=== PATIENT | male | born 1960 | race Caucasian/White ===

== ENCOUNTER 2020-01-03 19:58 | Inpatient (IN) ==
[2020-01-03] MEDS ORDERED: 0.9 % Sodium Chloride 1,000 ML IVC ONE (20:22)
[2020-01-03 20:42] LABS: Basophils % 0.4 %; Eosinophils # 0.2 K/mcL (0.0-0.6); Eosinophils % 1.9 %; Hematocrit 39.4 % (37.5-50.1); Immature Granulocytes % 0.6 % (0-4); Lymphocytes # 2.2 K/mcL (0.6-4.6); Lymphocytes % 22.6 %; Mean Corpuscular Hemoglobin 28.7 pg (28.0-33.3); Mean Platelet Volume 11.6 fL (9.4-12.4); Monocytes # 1.1 K/mcL (0.0-1.3); Monocytes % 11.5 %; Neutrophils # 6.1 K/mcL (1.6-8.9); Platelet Count 220 K/mcL (140-400); Red Blood Count 4.53 M/mcL (4.19-5.50); Red Cell Distribution Width 13.8 % (11.5-14.5); White Blood Count 9.6 K/mcL (4.3-11.1)
[2020-01-03 21:06] LABS: Ethanol < 10 mg/dL (Less than 10)
[2020-01-03 21:13] LABS: Alanine Aminotransferase 26 Units/L (7-52); Albumin 3.6 g/dL (3.5-5.7); Albumin/Globulin Ratio 1.3 (1.1-2.2); Alkaline Phosphatase 73 Units/L (34-104); Aspartate Amino Transferase 13 Units/L (13-39); BUN/Creatinine Ratio 20 (6-26); Bilirubin,Total 0.4 mg/dL (0.3-1.0); Blood Urea Nitrogen 26 mg/dL (8-23); Carbon Dioxide 22 mEq/L (23-29); Chloride 98 mEq/L (98-107); Globulin 2.7 g/dL (2.4-3.5); Glucose 530 mg/dL (70-105); Osmolality,Calculated 295 (280-300); Potassium 4.2 mEq/L (3.5-5.1); Sodium 128 mEq/L (136-145); Total Protein 6.3 g/dL (6.4-8.9); eGFR For African Americans > 60 (> 60); eGFR For Non-African Americans 56 (> 60)
[2020-01-03 21:15] LABS: Troponin I 0.05 ng/mL (< 0.04)
[2020-01-03 21:25] LABS: Bilirubin,Urine Negative (Negative); Blood,Urine Negative (Negative); Clarity,Urine Clear (Clear); Color,Urine Light-Yellow (Yellow); Glucose,Urine (UA) >=1000 mg/dL (Normal); Ketones,Urine Negative (Negative); Leukocyte Esterase,Urine Negative (Negative); Nitrite,Urine Negative (Negative); Protein,Urine Trace mg/dL (Neg-Trace); RBC,Urine 0-3 per hpf (0-3); Specific Gravity,Urine > 1.030 (1.010-1.025); Squamous Epithelial Cell,Urine Few per hpf (None-Few); Urobilinogen,Urine Normal (Normal); WBC,Urine 0-3 per hpf (0-3)
[2020-01-03] MEDS ORDERED: Insulin Regular, Human 100 UNIT/ML SQ ONE (21:49)
[2020-01-03] MEDS ORDERED: Aspirin 81 MG TAB.CHEW PO STA (22:29)
[2020-01-03] MEDS ORDERED: Naloxone 0.4 MG/ML INJ IVP PRN (23:22)
[2020-01-04] MEDS ORDERED: D5% in Water 1,000 ML IVC PRN (03:08)
[2020-01-04] MEDS ORDERED: *HR* Dextrose 50 % in Water (Vial) 50 ML VIAL IVP PRN (03:08)
[2020-01-04] MEDS ORDERED: Dextrose Gel 15 GM/37.5 ML TUBE PO PRN ×2 (03:08)
[2020-01-04] MEDS ORDERED: 0.9 % Sodium Chloride 1,000 ML IVC ONE (04:50)
[2020-01-04] MEDS ORDERED: Perflutren Lipid Microsphere 1.3 ML in 0.9 % Sodium Chloride 8.7 ML IVP PRN (04:56)
[2020-01-04] MEDS ORDERED: *HR* Heparin 5,000 UNIT/ML VIAL SQ SCH (06:00)
[2020-01-04] MEDS ORDERED: Insulin LISPRO 300 UNITS/3 ML VIAL SQ SCH (06:00)
[2020-01-04 06:04] LABS: Hematocrit 38.6 % (37.5-50.1); Hemoglobin 12.6 g/dL (12.9-16.9); Mean Corpuscular HGB Conc 32.6 g/dL (31.6-35.5); Mean Corpuscular Hemoglobin 28.1 pg (28.0-33.3); Mean Platelet Volume 11.6 fL (9.4-12.4); Platelet Count 204 K/mcL (140-400); Red Blood Count 4.49 M/mcL (4.19-5.50); Red Cell Distribution Width 13.7 % (11.5-14.5); White Blood Count 7.9 K/mcL (4.3-11.1)
[2020-01-04 06:24] LABS: Alanine Aminotransferase 25 Units/L (7-52); Albumin 3.4 g/dL (3.5-5.7); Albumin/Globulin Ratio 1.3 (1.1-2.2); Alkaline Phosphatase 62 Units/L (34-104); Aspartate Amino Transferase 14 Units/L (13-39); BUN/Creatinine Ratio 27 (6-26); Bilirubin,Total 0.3 mg/dL (0.3-1.0); Blood Urea Nitrogen 24 mg/dL (8-23); Calcium 8.9 mg/dL (8.6-10.3); Carbon Dioxide 22 mEq/L (23-29); Chloride 106 mEq/L (98-107); Globulin 2.6 g/dL (2.4-3.5); Glucose 262 mg/dL (70-105); Magnesium 1.3 mg/dL (1.6-2.6); Osmolality,Calculated 291 (280-300); Phosphorous 3.4 mg/dL (2.7-4.5); Potassium 3.8 mEq/L (3.5-5.1); Sodium 134 mEq/L (136-145); Troponin I 0.05 ng/mL (< 0.04); eGFR For African Americans > 60 (> 60); eGFR For Non-African Americans > 60 (> 60)
[2020-01-04] MEDS: Gabapentin 400 MG CAPSULE PO SCH ×3 (12:49→21:18)
[2020-01-04] MEDS: Insulin LISPRO 300 UNITS/3 ML VIAL SQ SCH ×3 (12:49→21:12)
[2020-01-04] MEDS ORDERED: Insulin DETEMIR 100 UNIT/ML X5UNITS SQ SCH (21:00)
[2020-01-04] MEDS: Apixaban 5 MG TABLET PO SCH (21:11)
[2020-01-04] MEDS ORDERED: Acetaminophen 325 MG TABLET PO PRN (23:49)
[2020-01-04] MEDS ORDERED: *HR* OxyCODONE Immed Rel 5 MG TABLET PO PRN (23:50)
[2020-01-05 06:20] LABS: Basophils # 0.1 K/mcL (0.0-0.2); Basophils % 0.6 %; Eosinophils # 0.2 K/mcL (0.0-0.6); Eosinophils % 2.4 %; Hematocrit 39.1 % (37.5-50.1); Hemoglobin 12.6 g/dL (12.9-16.9); Immature Granulocytes % 0.3 % (0-4); Lymphocytes # 2.3 K/mcL (0.6-4.6); Lymphocytes % 26.6 %; Mean Corpuscular HGB Conc 32.2 g/dL (31.6-35.5); Mean Corpuscular Hemoglobin 28.3 pg (28.0-33.3); Mean Corpuscular Volume 87.7 fL (83.0-100.0); Mean Platelet Volume 12.4 fL (9.4-12.4); Monocytes # 0.8 K/mcL (0.0-1.3); Monocytes % 9.3 %; Neutrophils # 5.3 K/mcL (1.6-8.9); Platelet Count 175 K/mcL (140-400); Red Blood Count 4.46 M/mcL (4.19-5.50); Red Cell Distribution Width 13.9 % (11.5-14.5); Segmented Neutrophils % 60.8 %; White Blood Count 8.7 K/mcL (4.3-11.1)
[2020-01-05 06:57] LABS: BUN/Creatinine Ratio 28 (6-26); Blood Urea Nitrogen 24 mg/dL (8-23); Calcium 8.9 mg/dL (8.6-10.3); Carbon Dioxide 22 mEq/L (23-29); Chloride 107 mEq/L (98-107); Glucose 229 mg/dL (70-105); Magnesium 1.3 mg/dL (1.6-2.6); Osmolality,Calculated 291 (280-300); Potassium 4.2 mEq/L (3.5-5.1); Sodium 135 mEq/L (136-145); eGFR For African Americans > 60 (> 60); eGFR For Non-African Americans > 60 (> 60)
[2020-01-05 08:57] LABS: Estimated Average Glucose 309 mg/dl
[2020-01-05] MEDS: Insulin LISPRO 300 UNITS/3 ML VIAL SQ SCH ×4 (10:15→20:47)
[2020-01-05] MEDS: Gabapentin 400 MG CAPSULE PO SCH ×3 (10:21→20:47)
[2020-01-05] MEDS: lisinopriL 5 MG TABLET PO SCH (10:21)
[2020-01-05] MEDS: Apixaban 5 MG TABLET PO SCH ×2 (10:21→20:47)
[2020-01-05] MEDS: Acetaminophen 325 MG TABLET PO PRN (16:03)
[2020-01-05] MEDS: Insulin DETEMIR 100 UNIT/ML X5UNITS SQ SCH (20:48)
[2020-01-06 04:31] LABS: BUN/Creatinine Ratio 22 (6-26); Blood Urea Nitrogen 19 mg/dL (8-23); Carbon Dioxide 23 mEq/L (23-29); Chloride 104 mEq/L (98-107); Glucose 228 mg/dL (70-105); Magnesium 1.6 mg/dL (1.6-2.6); Osmolality,Calculated 287 (280-300); Phosphorous 3.3 mg/dL (2.7-4.5); Potassium 4.3 mEq/L (3.5-5.1); Sodium 134 mEq/L (136-145); eGFR For African Americans > 60 (> 60); eGFR For Non-African Americans > 60 (> 60)
[2020-01-06] MEDS: lisinopriL 5 MG TABLET PO SCH (08:13)
[2020-01-06] MEDS: Gabapentin 400 MG CAPSULE PO SCH ×3 (08:13→20:38)
[2020-01-06] MEDS: Apixaban 5 MG TABLET PO SCH ×2 (08:13→20:30)
[2020-01-06] MEDS: Insulin LISPRO 300 UNITS/3 ML VIAL SQ SCH ×3 (08:15→17:44)
[2020-01-06] MEDS ORDERED: Insulin LISPRO 300 UNITS/3 ML VIAL SQ SCH ×3 (13:16→21:00)
[2020-01-06] MEDS: 0.9 % Sodium Chloride 1,000 ML IVC SCH (14:12)
[2020-01-06] MEDS: Insulin DETEMIR 100 UNIT/ML X5UNITS SQ SCH (20:35)
[2020-01-07] MEDS: 0.9 % Sodium Chloride 1,000 ML IVC SCH (03:57)
[2020-01-07] MEDS: Gabapentin 400 MG CAPSULE PO SCH (09:02)
[2020-01-07] MEDS: Insulin LISPRO 300 UNITS/3 ML VIAL SQ SCH (09:02)
[2020-01-07] MEDS: Apixaban 5 MG TABLET PO SCH (09:02)
[2020-01-07] MEDS: Acetaminophen 325 MG TABLET PO PRN (09:05)
[2020-01-07 09:35] LABS: BUN/Creatinine Ratio 25 (6-26); Blood Urea Nitrogen 20 mg/dL (8-23); Calcium 8.9 mg/dL (8.6-10.3); Carbon Dioxide 25 mEq/L (23-29); Chloride 105 mEq/L (98-107); Glucose 259 mg/dL (70-105); Magnesium 1.7 mg/dL (1.6-2.6); Osmolality,Calculated 288 (280-300); Potassium 4.6 mEq/L (3.5-5.1); Sodium 133 mEq/L (136-145); eGFR For African Americans > 60 (> 60); eGFR For Non-African Americans > 60 (> 60)
[2020-01-07] MEDS ORDERED: Magnesium Oxide 400 MG TABLET PO SCH (10:00)
[2020-01-07 10:11] VITALS: BP 150/82
== END 2020-01-07 13:22 | disposition home or self-care (01) | DRG 281 ==
LOC: 3BNU 19:58 → EMEROOARM 19:58 → SUATTDRO 22:40 → 3BNU 23:28
PROVIDERS: ADMIT Internal Medicine; ATTEND Internal Medicine

== ENCOUNTER 2020-05-08 19:58 | Inpatient (IN) ==
[2020-05-08] MEDS ORDERED: 0.9 % Sodium Chloride 500 ML IVC ONE (20:11)
[2020-05-08] MEDS: Aspirin 81 MG TAB.CHEW PO ONE ×2 (20:16→21:13)
[2020-05-08] MEDS ORDERED: Isovue-370 500 ML BOTTLE IVP ONE ×2 (20:22)
[2020-05-08 20:32] LABS: Basophils % 0.5 %; Eosinophils # 0.2 K/mcL (0.0-0.6); Hematocrit 40.9 % (37.5-50.1); Hemoglobin 13.3 g/dL (12.9-16.9); Immature Granulocytes % 0.8 % (0-4); Lymphocytes % 27.1 %; Mean Corpuscular HGB Conc 32.5 g/dL (31.6-35.5); Mean Corpuscular Hemoglobin 28.1 pg (28.0-33.3); Mean Corpuscular Volume 86.5 fL (83.0-100.0); Mean Platelet Volume 11.3 fL (9.4-12.4); Monocytes # 0.9 K/mcL (0.0-1.3); Monocytes % 12.5 %; Neutrophils # 4.2 K/mcL (1.6-8.9); Platelet Count 219 K/mcL (140-400); Red Blood Count 4.73 M/mcL (4.19-5.50); Segmented Neutrophils % 56.1 %; White Blood Count 7.5 K/mcL (4.3-11.1)
[2020-05-08 20:41] LABS: INR 1.2; Prothrombin Time 13.3 Seconds (9.4-12.1)
[2020-05-08 20:44] LABS: Activated Partial Thrombo Time 26.9 Seconds (26.0-36.0)
[2020-05-08 20:52] LABS: BUN/Creatinine Ratio 19 (6-26); Blood Urea Nitrogen 18 mg/dL (8-23); Calcium 8.8 mg/dL (8.6-10.3); Carbon Dioxide 22 mEq/L (23-29); Chloride 103 mEq/L (98-107); Glucose 299 mg/dL (70-105); Lipase 20 Units/L (11-82); Osmolality,Calculated 289 (280-300); Potassium 4.3 mEq/L (3.5-5.1); Sodium 133 mEq/L (136-145); eGFR For African Americans > 60 (> 60); eGFR For Non-African Americans > 60 (> 60)
[2020-05-08 21:03] LABS: Troponin I 0.06 ng/mL (< 0.04)
[2020-05-08] MEDS ORDERED: *HR* FentaNYL (PF) 100 MCG/2 ML VIAL IVP ONE (22:27)
[2020-05-08] MEDS ORDERED: *HR* Dextrose 50 % in Water (Vial) 50 ML VIAL IVP PRN (23:26)
[2020-05-08] MEDS ORDERED: Dextrose Gel 15 GM/37.5 ML TUBE PO PRN ×2 (23:26)
[2020-05-08] MEDS ORDERED: D5% in Water 1,000 ML IVC PRN (23:26)
[2020-05-08] MEDS ORDERED: Naloxone 0.4 MG/ML INJ IVP PRN (23:26)
[2020-05-09] MEDS ORDERED: Furosemide 20 MG/2 ML VIAL IVP ONE (01:11)
[2020-05-09] MEDS ORDERED: Ipratropium/Albuterol Neb 3 ML IH PRN (01:13)
[2020-05-09 02:07] LABS: Basophils # 0.1 K/mcL (0.0-0.2); Basophils % 0.6 %; Eosinophils # 0.3 K/mcL (0.0-0.6); Eosinophils % 3.5 %; Hemoglobin 12.5 g/dL (12.9-16.9); Immature Granulocytes % 0.8 % (0-4); Lymphocytes # 2.4 K/mcL (0.6-4.6); Lymphocytes % 30.2 %; Mean Corpuscular HGB Conc 32.9 g/dL (31.6-35.5); Mean Corpuscular Hemoglobin 28.9 pg (28.0-33.3); Mean Platelet Volume 11.3 fL (9.4-12.4); Platelet Count 214 K/mcL (140-400); Red Blood Count 4.32 M/mcL (4.19-5.50); Segmented Neutrophils % 51.9 %; White Blood Count 7.8 K/mcL (4.3-11.1)
[2020-05-09 02:18] LABS: BUN/Creatinine Ratio 19 (6-26); Blood Urea Nitrogen 16 mg/dL (8-23); Calcium 8.2 mg/dL (8.6-10.3); Carbon Dioxide 23 mEq/L (23-29); Chloride 106 mEq/L (98-107); Glucose 152 mg/dL (70-105); Osmolality,Calculated 284 (280-300); Potassium 3.8 mEq/L (3.5-5.1); Sodium 135 mEq/L (136-145); eGFR For African Americans > 60 (> 60); eGFR For Non-African Americans > 60 (> 60)
[2020-05-09] MEDS ORDERED: Azithromycin 250 MG TABLET PO ONE (04:45)
[2020-05-09] MEDS ORDERED: Nitroglycerin 0.4 MG TAB.SUBL SL PRN (04:53)
[2020-05-09] MEDS ORDERED: Isovue-370 500 ML BOTTLE IVP ONE (05:05)
[2020-05-09] MEDS ORDERED: Acetaminophen 325 MG TABLET PO ONE (06:14)
[2020-05-09] MEDS: Insulin LISPRO 300 UNITS/3 ML VIAL SQ SCH ×4 (09:36→21:23)
[2020-05-09] MEDS: Furosemide 40 MG/4 ML VIAL IVP SCH ×2 (09:56→21:19)
[2020-05-09] MEDS: Aspirin 81 MG TAB.CHEW PO SCH (09:56)
[2020-05-09] MEDS: Apixaban 5 MG TABLET PO SCH ×2 (09:56→21:19)
[2020-05-09] MEDS: predniSONE 20 MG TABLET PO SCH (09:57)
[2020-05-09] MEDS ORDERED: Ondansetron 4 MG/2 ML VIAL IVP PRN (10:21)
[2020-05-09] MEDS: *HR* HYDROcodone/Acet 5/325 mg TABLET PO PRN ×3 (11:36→23:50)
[2020-05-09] MEDS: Gabapentin 400 MG CAPSULE PO SCH ×2 (16:29→21:18)
[2020-05-09] MEDS ORDERED: Insulin DETEMIR 100 UNIT/ML X5UNITS SQ SCH (21:00)
[2020-05-10 02:17] LABS: BUN/Creatinine Ratio 21 (6-26); Blood Urea Nitrogen 24 mg/dL (8-23); Calcium 8.8 mg/dL (8.6-10.3); Carbon Dioxide 24 mEq/L (23-29); Chloride 98 mEq/L (98-107); Glucose 362 mg/dL (70-105); Magnesium 1.2 mg/dL (1.6-2.6); Osmolality,Calculated 289 (280-300); Phosphorous 4.6 mg/dL (2.7-4.5); Potassium 4.2 mEq/L (3.5-5.1); Sodium 130 mEq/L (136-145); eGFR For African Americans > 60 (> 60); eGFR For Non-African Americans > 60 (> 60)
[2020-05-10] MEDS: *HR* HYDROcodone/Acet 5/325 mg TABLET PO PRN ×4 (06:46→21:42)
[2020-05-10] MEDS ORDERED: Magnesium Sulfate 1 GM/102 ML PIGGYBACK IVPB ONE (07:19)
[2020-05-10] MEDS: Gabapentin 400 MG CAPSULE PO SCH ×4 (08:10→21:39)
[2020-05-10] MEDS: lisinopriL 5 MG TABLET PO SCH (08:11)
[2020-05-10] MEDS: Magnesium Oxide 400 MG TABLET PO SCH (08:11)
[2020-05-10] MEDS: predniSONE 20 MG TABLET PO SCH (08:12)
[2020-05-10] MEDS: Aspirin 81 MG TAB.CHEW PO SCH (08:12)
[2020-05-10] MEDS: Apixaban 5 MG TABLET PO SCH ×2 (08:12→21:39)
[2020-05-10] MEDS: Furosemide 40 MG/4 ML VIAL IVP SCH ×2 (08:13→21:39)
[2020-05-10] MEDS: Insulin LISPRO 300 UNITS/3 ML VIAL SQ SCH ×4 (08:15→21:40)
[2020-05-10 09:19] LABS: Estimated Average Glucose 269 mg/dl
[2020-05-10] MEDS ORDERED: Insulin LISPRO 300 UNITS/3 ML VIAL SQ SCH (17:00)
[2020-05-10] MEDS ORDERED: Insulin DETEMIR 100 UNIT/ML X5UNITS SQ SCH (21:00)
[2020-05-11] MEDS: *HR* HYDROcodone/Acet 5/325 mg TABLET PO PRN ×4 (02:19→20:55)
[2020-05-11 03:24] LABS: BUN/Creatinine Ratio 26 (6-26); Blood Urea Nitrogen 33 mg/dL (8-23); Calcium 9.3 mg/dL (8.6-10.3); Carbon Dioxide 29 mEq/L (23-29); Chloride 96 mEq/L (98-107); Glucose 362 mg/dL (70-105); Magnesium 1.5 mg/dL (1.6-2.6); Osmolality,Calculated 300 (280-300); Phosphorous 3.9 mg/dL (2.7-4.5); Potassium 3.9 mEq/L (3.5-5.1); Sodium 134 mEq/L (136-145); eGFR For African Americans > 60 (> 60); eGFR For Non-African Americans 57 (> 60)
[2020-05-11] MEDS ORDERED: Magnesium Sulfate 1 GM/102 ML PIGGYBACK IVPB ONE (08:32)
[2020-05-11] MEDS: predniSONE 10 MG TABLET PO SCH (09:09)
[2020-05-11] MEDS: Magnesium Oxide 400 MG TABLET PO SCH (09:09)
[2020-05-11] MEDS: Gabapentin 400 MG CAPSULE PO SCH ×4 (09:10→20:28)
[2020-05-11] MEDS: Aspirin 81 MG TAB.CHEW PO SCH (09:10)
[2020-05-11] MEDS: lisinopriL 5 MG TABLET PO SCH (09:10)
[2020-05-11] MEDS: Furosemide 40 MG/4 ML VIAL IVP SCH ×2 (09:10→20:34)
[2020-05-11] MEDS: Apixaban 5 MG TABLET PO SCH ×2 (09:10→20:28)
[2020-05-11] MEDS: Insulin DETEMIR 100 UNIT/ML X5UNITS SQ SCH ×2 (09:11→20:33)
[2020-05-11] MEDS: Insulin LISPRO 300 UNITS/3 ML VIAL SQ SCH ×7 (09:12→20:30)
[2020-05-12] MEDS: Gabapentin 400 MG CAPSULE PO SCH ×4 (08:49→20:33)
[2020-05-12] MEDS: Insulin LISPRO 300 UNITS/3 ML VIAL SQ SCH ×7 (08:49→20:33)
[2020-05-12] MEDS: lisinopriL 5 MG TABLET PO SCH (08:49)
[2020-05-12] MEDS: Aspirin 81 MG TAB.CHEW PO SCH (08:49)
[2020-05-12] MEDS: Furosemide 40 MG/4 ML VIAL IVP SCH ×2 (08:50→20:32)
[2020-05-12] MEDS: Apixaban 5 MG TABLET PO SCH ×2 (08:50→20:34)
[2020-05-12] MEDS: predniSONE 10 MG TABLET PO SCH (08:50)
[2020-05-12] MEDS: *HR* HYDROcodone/Acet 5/325 mg TABLET PO PRN ×4 (08:50→22:09)
[2020-05-12] MEDS: Magnesium Oxide 400 MG TABLET PO SCH (08:50)
[2020-05-12] MEDS: Insulin DETEMIR 100 UNIT/ML X5UNITS SQ SCH ×2 (08:56→20:33)
[2020-05-12] MEDS ORDERED: polyethylene glycoL 3350 17 GM POWD.PACK PO PRN (11:58)
[2020-05-12 20:05] VITALS: BP 127/82
[2020-05-13] MEDS: *HR* HYDROcodone/Acet 5/325 mg TABLET PO PRN (02:33)
== END 2020-05-13 03:40 | DRG 190 ==
LOC: EMEROOARM 19:58 → 3NENU 19:58 → SUATTDRO 22:52 → 3NENU 23:52 → 3BNU 05-10 14:01
PROVIDERS: ADMIT Family Medicine; ATTEND Internal Medicine

== ENCOUNTER 2020-08-18 00:25 | Inpatient (IN) ==
[2020-08-18] MEDS ORDERED: Isovue-370 500 ML BOTTLE IVP ONE ×3 (00:32→00:36)
[2020-08-18] MEDS ORDERED: 0.9 % Sodium Chloride 1,000 ML IVC ONE (00:48)
[2020-08-18 01:11] LABS: Basophils % 0.3 %; Eosinophils # 0.1 K/mcL (0.0-0.6); Eosinophils % 1.5 %; Hematocrit 35.3 % (37.5-50.1); Hemoglobin 11.3 g/dL (12.9-16.9); Immature Granulocytes % 1.3 % (0-4); Lymphocytes # 1.9 K/mcL (0.6-4.6); Mean Corpuscular Hemoglobin 28.5 pg (28.0-33.3); Mean Corpuscular Volume 88.9 fL (83.0-100.0); Mean Platelet Volume 10.5 fL (9.4-12.4); Monocytes # 0.7 K/mcL (0.0-1.3); Neutrophils # 4.3 K/mcL (1.6-8.9); Platelet Count 212 K/mcL (140-400); Red Blood Count 3.97 M/mcL (4.19-5.50); Red Cell Distribution Width 12.6 % (11.5-14.5); Segmented Neutrophils % 60.9 %; White Blood Count 7.1 K/mcL (4.3-11.1)
[2020-08-18 01:16] LABS: INR 1.6; Prothrombin Time 18.7 Seconds (9.4-12.1)
[2020-08-18 01:18] LABS: Activated Partial Thrombo Time 30.2 Seconds (26.0-36.0)
[2020-08-18 01:27] LABS: D-Dimer < 215 ng/mLFEU (0-500)
[2020-08-18] MEDS ORDERED: Norepinephrine 4 MG/254 ML IV.SOLN IVC SCH (01:30)
[2020-08-18 01:36] LABS: Troponin I 0.05 ng/mL (< 0.04)
[2020-08-18 01:42] LABS: Alanine Aminotransferase 13 Units/L (7-52); Albumin 2.4 g/dL (3.5-5.7); Albumin/Globulin Ratio 1.2 (1.1-2.2); Alkaline Phosphatase 41 Units/L (34-104); Aspartate Amino Transferase 8 Units/L (13-39); BUN/Creatinine Ratio 21 (6-26); Bilirubin,Indirect 0.2 mg/dL (0.0-1.0); Bilirubin,Total 0.2 mg/dL (0.3-1.0); Blood Urea Nitrogen 21 mg/dL (8-23); Calcium 5.6 mg/dL (8.6-10.3); Carbon Dioxide 20 mEq/L (23-29); Chloride 114 mEq/L (98-107); Glucose 122 mg/dL (70-105); Lipase 25 Units/L (11-82); Magnesium 0.9 mg/dL (1.6-2.6); Osmolality,Calculated 294 (280-300); Phosphorous 2.3 mg/dL (2.7-4.5); Potassium 2.6 mEq/L (3.5-5.1); Sodium 140 mEq/L (136-145); Total Protein 4.4 g/dL (6.4-8.9); eGFR For African Americans > 60 (> 60); eGFR For Non-African Americans > 60 (> 60)
[2020-08-18] MEDS ORDERED: Potassium Chloride 40 MEQ, Lidocaine 1% 2 ML in 0.9 % Sodium Chloride 500 ML IVPB ONE (02:00)
[2020-08-18] MEDS: Calcium Gluconate 1gm/50mL 1 GM/50 ML BAG IVPB SCH ×3 (02:04→04:33)
[2020-08-18] MEDS ORDERED: Albumin 25% 25gram/100mL 25 GM/100 ML IV.SOLN IVPB ONE (02:19)
[2020-08-18] MEDS ORDERED: *HR* FentaNYL (PF) 100 MCG/2 ML VIAL IVP ONE (03:11)
[2020-08-18 03:39] LABS: Bacteria,Urine Few per hpf (None-Few); Bilirubin,Urine Negative (Negative); Blood,Urine Negative (Negative); Clarity,Urine Clear (Clear); Color,Urine Light-Yellow (Yellow); Glucose,Urine (UA) >=1000 mg/dL (Normal); Ketones,Urine Negative (Negative); Leukocyte Esterase,Urine Negative (Negative); Mucus,Urine Few per lpf (None-Few); Nitrite,Urine Negative (Negative); Protein,Urine Negative (Neg-Trace); RBC,Urine 0-3 per hpf (0-3); Specific Gravity,Urine 1.017 (1.010-1.025); Urobilinogen,Urine Normal (Normal); WBC,Urine 0-3 per hpf (0-3)
[2020-08-18 05:00] LABS: VBG Ionized Calcium 1.16 mmol/L (1.15-1.35)
[2020-08-18 05:37] LABS: Calcium 9.2 mg/dL (8.6-10.3); Magnesium 1.8 mg/dL (1.6-2.6); Phosphorous 4.4 mg/dL (2.7-4.5); Potassium 4.9 mEq/L (3.5-5.1)
[2020-08-18 05:40] LABS: Troponin I 0.07 ng/mL (< 0.04)
[2020-08-18 05:46] LABS: Adenovirus Not Detected (Not Detect); Bordetella Pertussis Not Detected (Not Detect); Chlamydophila pneumoniae Not Detected (Not Detect); Coronavirus 229E Not Detected (Not Detect); Coronavirus HKU1 Not Detected (Not Detect); Coronavirus NL63 Not Detected (Not Detect); Coronavirus OC43 Not Detected (Not Detect); Human Metapneumovirus Not Detected (Not Detect); Human Rhinovirus/Enterovirus Not Detected (Not Detect); Influenza A Subtype 2009 H1 Not Detected (Not Detect); Influenza B Not Detected (Not Detect); Mycoplasma pneumoniae Not Detected (Not Detect); Parainfluenza Virus 1 Not Detected (Not Detect); Parainfluenza Virus 2 Not Detected (Not Detect); Parainfluenza Virus 3 Not Detected (Not Detect); Parainfluenza Virus 4 Not Detected (Not Detect); Respiratory Syncytial Virus Not Detected (Not Detect); SARS-CoV-2 Not Detected (Not Detect)
[2020-08-18] MEDS ORDERED: Naloxone 0.4 MG/ML INJ IVP PRN (06:00)
[2020-08-18] MEDS ORDERED: Melatonin 3 MG TABLET PO PRN (06:00)
[2020-08-18] MEDS ORDERED: Ondansetron 4 MG/2 ML VIAL IVP PRN (06:00)
[2020-08-18] MEDS ORDERED: *HR* Heparin 5,000 UNIT/ML VIAL IVP PRN ×2 (06:02)
[2020-08-18] MEDS ORDERED: D5% in Water 1,000 ML IVC PRN (06:03)
[2020-08-18] MEDS ORDERED: *HR* Dextrose 50 % in Water (Vial) 50 ML VIAL IVP PRN (06:03)
[2020-08-18] MEDS ORDERED: Dextrose Gel 15 GM/37.5 ML TUBE PO PRN ×2 (06:03)
[2020-08-18] MEDS ORDERED: Heparin 25,000UNIT/250ML 1/2NS 25,000 UNIT/250 ML IV.SOLN IVC SCH (06:15)
[2020-08-18 08:11] LABS: Estimated Average Glucose 206 mg/dl; Hemoglobin A1C 8.8 %
[2020-08-18] MEDS: Insulin LISPRO 300 UNITS/3 ML VIAL SUBQ SCH ×2 (11:13→18:13)
[2020-08-18 12:10] LABS: Troponin I 0.07 ng/mL (< 0.04)
[2020-08-18] MEDS ORDERED: Perflutren Lipid Microsphere 1.3 ML in 0.9 % Sodium Chloride 8.7 ML IVP PRN (13:03)
[2020-08-18] MEDS: Gabapentin 400 MG CAPSULE PO SCH ×2 (13:44→20:37)
[2020-08-18] MEDS: Aspirin 81 MG TAB.CHEW PO SCH (13:44)
[2020-08-18 14:20] LABS: Calcium 9.6 mg/dL (8.6-10.3)
[2020-08-18] MEDS ORDERED: Gabapentin 400 MG CAPSULE PO SCH (15:00)
[2020-08-18] MEDS: 0.9 % Sodium Chloride 1,000 ML IVC SCH (16:01)
[2020-08-18] MEDS: rOPINIRole 1 MG TABLET PO SCH (20:36)
[2020-08-19] MEDS: Insulin LISPRO 300 UNITS/3 ML VIAL SUBQ SCH ×4 (00:34→17:41)
[2020-08-19 01:48] LABS: Basophils % 0.6 %; Eosinophils # 0.2 K/mcL (0.0-0.6); Eosinophils % 3.1 %; Hematocrit 37.6 % (37.5-50.1); Hemoglobin 12.2 g/dL (12.9-16.9); Immature Granulocytes % 0.6 % (0-4); Lymphocytes # 2.1 K/mcL (0.6-4.6); Lymphocytes % 30.1 %; Mean Corpuscular HGB Conc 32.4 g/dL (31.6-35.5); Mean Corpuscular Hemoglobin 28.2 pg (28.0-33.3); Mean Platelet Volume 10.4 fL (9.4-12.4); Monocytes # 0.7 K/mcL (0.0-1.3); Monocytes % 10.5 %; Neutrophils # 3.9 K/mcL (1.6-8.9); Platelet Count 210 K/mcL (140-400); Red Blood Count 4.32 M/mcL (4.19-5.50); Red Cell Distribution Width 12.7 % (11.5-14.5); Segmented Neutrophils % 55.1 %; White Blood Count 7.1 K/mcL (4.3-11.1)
[2020-08-19] MEDS: 0.9 % Sodium Chloride 1,000 ML IVC SCH ×2 (01:57→11:14)
[2020-08-19 01:58] LABS: INR 1.2; Prothrombin Time 13.4 Seconds (9.4-12.1)
[2020-08-19 02:01] LABS: Activated Partial Thrombo Time 44.1 Seconds (26.0-36.0)
[2020-08-19 02:07] LABS: BUN/Creatinine Ratio 19 (6-26); Blood Urea Nitrogen 27 mg/dL (8-23); Calcium 8.8 mg/dL (8.6-10.3); Carbon Dioxide 27 mEq/L (23-29); Chloride 102 mEq/L (98-107); Glucose 195 mg/dL (70-105); Magnesium 1.7 mg/dL (1.6-2.6); Osmolality,Calculated 290 (280-300); Phosphorous 4.4 mg/dL (2.7-4.5); Potassium 4.4 mEq/L (3.5-5.1); Sodium 135 mEq/L (136-145); eGFR For African Americans > 60 (> 60); eGFR For Non-African Americans 51 (> 60)
[2020-08-19] MEDS: Aspirin 81 MG TAB.CHEW PO SCH (07:24)
[2020-08-19] MEDS: Isosorbide MONOnitrate (24 HR) 30 MG TAB.ER.24H PO SCH (07:24)
[2020-08-19] MEDS: Gabapentin 400 MG CAPSULE PO SCH ×3 (07:24→21:32)
[2020-08-19] MEDS ORDERED: lisinopriL 5 MG TABLET PO SCH (09:00)
[2020-08-19] MEDS: Magnesium Oxide 400 MG TABLET PO SCH ×2 (09:00→21:31)
[2020-08-19] MEDS: Apixaban 5 MG TABLET PO SCH ×2 (11:15→21:32)
[2020-08-19 11:53] LABS: Potassium,Urine 32.3 mEq/L; Protein/Creatinine Ratio,Urine 0.15 mg/mg (0.00-0.20); Sodium, Urine 75.4 mEq/L
[2020-08-19] MEDS ORDERED: Insulin LISPRO 300 UNITS/3 ML VIAL SUBQ SCH (21:00)
[2020-08-19] MEDS ORDERED: Insulin DETEMIR 100 UNIT/ML X5UNITS SUBQ SCH (21:00)
[2020-08-19] MEDS: Metoprolol XL (24 HR) Succ 25 MG TAB.ER.24H PO SCH (21:32)
[2020-08-19] MEDS: rOPINIRole 1 MG TABLET PO SCH (21:32)
[2020-08-20 02:18] LABS: Basophils % 0.5 %; Eosinophils # 0.2 K/mcL (0.0-0.6); Eosinophils % 2.4 %; Hematocrit 36.5 % (37.5-50.1); Hemoglobin 11.5 g/dL (12.9-16.9); Immature Granulocytes % 0.5 % (0-4); Lymphocytes # 1.5 K/mcL (0.6-4.6); Lymphocytes % 19.6 %; Mean Corpuscular HGB Conc 31.5 g/dL (31.6-35.5); Mean Platelet Volume 10.8 fL (9.4-12.4); Monocytes # 0.8 K/mcL (0.0-1.3); Monocytes % 10.1 %; Neutrophils # 5.1 K/mcL (1.6-8.9); Platelet Count 185 K/mcL (140-400); Red Cell Distribution Width 12.7 % (11.5-14.5); Segmented Neutrophils % 66.9 %; White Blood Count 7.6 K/mcL (4.3-11.1)
[2020-08-20 02:36] LABS: BUN/Creatinine Ratio 18 (6-26); Blood Urea Nitrogen 21 mg/dL (8-23); Calcium 8.4 mg/dL (8.6-10.3); Carbon Dioxide 21 mEq/L (23-29); Chloride 108 mEq/L (98-107); Glucose 247 mg/dL (70-105); Osmolality,Calculated 293 (280-300); Potassium 4.6 mEq/L (3.5-5.1); Sodium 136 mEq/L (136-145); eGFR For African Americans > 60 (> 60); eGFR For Non-African Americans > 60 (> 60)
[2020-08-20] MEDS: Acetaminophen 325 MG TABLET PO PRN ×2 (05:40→12:41)
[2020-08-20] MEDS: Aspirin 81 MG TAB.CHEW PO SCH (07:37)
[2020-08-20] MEDS: Isosorbide MONOnitrate (24 HR) 30 MG TAB.ER.24H PO SCH (07:37)
[2020-08-20] MEDS: Gabapentin 400 MG CAPSULE PO SCH (07:37)
[2020-08-20] MEDS: Metoprolol XL (24 HR) Succ 25 MG TAB.ER.24H PO SCH (07:38)
[2020-08-20] MEDS: Insulin LISPRO 300 UNITS/3 ML VIAL SUBQ SCH ×2 (07:38→11:04)
[2020-08-20] MEDS: Apixaban 5 MG TABLET PO SCH (07:38)
[2020-08-20] MEDS: Magnesium Oxide 400 MG TABLET PO SCH (07:38)
[2020-08-20 10:27] VITALS: BP 135/82
== END 2020-08-20 13:33 | disposition home or self-care (01) | DRG 281 ==
LOC: EMEROOARM 00:25 → 2NENU 00:25 → SUATTDRO 05:56 → 2NENU 06:49
PROVIDERS: ADMIT Student in an Organized Health Care Education/Training Program; ATTEND Family Medicine

== ENCOUNTER 2020-11-06 01:17 | Inpatient (IN) ==
[2020-11-06] MEDS ORDERED: Ondansetron 4 MG/2 ML VIAL IVP PRN (04:58)
[2020-11-06] MEDS ORDERED: Acetaminophen 325 MG TABLET PO PRN (04:58)
[2020-11-06] MEDS ORDERED: Naloxone 0.4 MG/ML INJ IVP PRN (04:58)
[2020-11-06] MEDS ORDERED: Melatonin 3 MG TABLET PO PRN (04:58)
[2020-11-06] MEDS ORDERED: *HR* Dextrose 50 % in Water (Vial) 50 ML VIAL IVP PRN (06:17)
[2020-11-06] MEDS ORDERED: D5% in Water 1,000 ML IVC PRN (06:17)
[2020-11-06] MEDS ORDERED: Dextrose Gel 15 GM/37.5 ML TUBE PO PRN ×2 (06:17)
[2020-11-06] MEDS: Morphine Sulfate 2 MG/ML SYRINGE IVP PRN ×5 (06:26→21:06)
[2020-11-06 07:02] LABS: Basophils # 0.1 K/mcL (0.0-0.2); Basophils % 0.6 %; Eosinophils # 0.2 K/mcL (0.0-0.6); Hematocrit 40.2 % (37.5-50.1); Hemoglobin 12.8 g/dL (12.9-16.9); Immature Granulocytes % 0.6 % (0-4); Lymphocytes # 1.7 K/mcL (0.6-4.6); Lymphocytes % 16.8 %; Mean Corpuscular HGB Conc 31.8 g/dL (31.6-35.5); Mean Platelet Volume 10.3 fL (9.4-12.4); Monocytes # 1.5 K/mcL (0.0-1.3); Monocytes % 14.7 %; Neutrophils # 6.6 K/mcL (1.6-8.9); Platelet Count 235 K/mcL (140-400); Red Blood Count 4.57 M/mcL (4.19-5.50); Red Cell Distribution Width 13.6 % (11.5-14.5); Segmented Neutrophils % 65.3 %
[2020-11-06 07:25] LABS: BUN/Creatinine Ratio 6 (6-26); Blood Urea Nitrogen 7 mg/dL (8-23); Calcium 8.8 mg/dL (8.6-10.3); Carbon Dioxide 23 mEq/L (23-29); Chloride 107 mEq/L (98-107); Glucose 142 mg/dL (70-105); Magnesium 1.4 mg/dL (1.6-2.6); Osmolality,Calculated 282 (280-300); Potassium 3.9 mEq/L (3.5-5.1); Sodium 136 mEq/L (136-145); eGFR For African Americans > 60 (> 60); eGFR For Non-African Americans > 60 (> 60)
[2020-11-06] MEDS: Insulin LISPRO 300 UNITS/3 ML VIAL SUBQ SCH ×2 (11:41→17:26)
[2020-11-06] MEDS: Benzonatate 100 MG CAPSULE PO PRN ×2 (12:04→21:05)
[2020-11-06] MEDS ORDERED: Perflutren Lipid Microsphere 1.3 ML in 0.9 % Sodium Chloride 8.7 ML IVP PRN (12:55)
[2020-11-06] MEDS ORDERED: *HR* Heparin 5,000 UNIT/ML VIAL IVP ONE (13:39)
[2020-11-06] MEDS ORDERED: *HR* Heparin 5,000 UNIT/ML VIAL IVP PRN ×2 (13:39)
[2020-11-06] MEDS ORDERED: Nitroglycerin 0.4 MG TAB.SUBL SL PRN (13:40)
[2020-11-06] MEDS ORDERED: Metoprolol XL (24 HR) Succ 25 MG TAB.ER.24H PO SCH (13:45)
[2020-11-06 14:17] LABS: Hematocrit 36.2 % (37.5-50.1); Hemoglobin 11.7 g/dL (12.9-16.9); Mean Corpuscular HGB Conc 32.3 g/dL (31.6-35.5); Mean Corpuscular Hemoglobin 28.3 pg (28.0-33.3); Mean Corpuscular Volume 87.7 fL (83.0-100.0); Mean Platelet Volume 10.4 fL (9.4-12.4); Platelet Count 206 K/mcL (140-400); Red Blood Count 4.13 M/mcL (4.19-5.50); Red Cell Distribution Width 13.8 % (11.5-14.5); White Blood Count 8.9 K/mcL (4.3-11.1)
[2020-11-06 14:27] LABS: Heparin anti-factor XA UFH < 0.04 IU/mL (0.30-0.70)
[2020-11-06 14:28] LABS: INR 1.3; Prothrombin Time 14.4 Seconds (9.4-12.1)
[2020-11-06] MEDS: Metoprolol XL (24 HR) Succ 25 MG TAB.ER.24H PO SCH ×2 (14:42→21:06)
[2020-11-06] MEDS: Isosorbide MONOnitrate (24 HR) 30 MG TAB.ER.24H PO SCH (14:42)
[2020-11-06] MEDS: Heparin 25,000UNIT/250ML 1/2NS 25,000 UNIT/250 ML IV.SOLN IVC SCH (14:42)
[2020-11-06] MEDS: Aspirin Enteric Coated 81 MG Tablet PO SCH (14:42)
[2020-11-06] MEDS: Gabapentin 400 MG CAPSULE PO SCH (21:06)
[2020-11-07] MEDS: Insulin LISPRO 300 UNITS/3 ML VIAL SUBQ SCH ×5 (01:53→23:35)
[2020-11-07] MEDS: Morphine Sulfate 2 MG/ML SYRINGE IVP PRN ×2 (05:57→20:37)
[2020-11-07 06:03] LABS: Basophils # 0.1 K/mcL (0.0-0.2); Basophils % 0.7 %; Eosinophils # 0.2 K/mcL (0.0-0.6); Eosinophils % 2.3 %; Hematocrit 36.6 % (37.5-50.1); Hemoglobin 11.5 g/dL (12.9-16.9); Immature Granulocytes % 0.4 % (0-4); Lymphocytes # 1.8 K/mcL (0.6-4.6); Lymphocytes % 17.9 %; Mean Corpuscular HGB Conc 31.4 g/dL (31.6-35.5); Mean Corpuscular Hemoglobin 28.3 pg (28.0-33.3); Mean Corpuscular Volume 89.9 fL (83.0-100.0); Monocytes # 1.7 K/mcL (0.0-1.3); Monocytes % 16.5 %; Neutrophils # 6.3 K/mcL (1.6-8.9); Platelet Count 208 K/mcL (140-400); Red Blood Count 4.07 M/mcL (4.19-5.50); Red Cell Distribution Width 13.8 % (11.5-14.5); Segmented Neutrophils % 62.2 %; White Blood Count 10.1 K/mcL (4.3-11.1)
[2020-11-07 06:21] LABS: BUN/Creatinine Ratio 10 (6-26); Blood Urea Nitrogen 11 mg/dL (8-23); Calcium 8.6 mg/dL (8.6-10.3); Carbon Dioxide 23 mEq/L (23-29); Chloride 107 mEq/L (98-107); Glucose 136 mg/dL (70-105); Osmolality,Calculated 281 (280-300); Potassium 4.3 mEq/L (3.5-5.1); Sodium 135 mEq/L (136-145); eGFR For African Americans > 60 (> 60); eGFR For Non-African Americans > 60 (> 60)
[2020-11-07] MEDS: Aspirin Enteric Coated 81 MG Tablet PO SCH (07:24)
[2020-11-07] MEDS: Isosorbide MONOnitrate (24 HR) 30 MG TAB.ER.24H PO SCH (07:24)
[2020-11-07] MEDS: Gabapentin 400 MG CAPSULE PO SCH ×4 (07:24→20:33)
[2020-11-07] MEDS: Metoprolol XL (24 HR) Succ 25 MG TAB.ER.24H PO SCH ×2 (07:24→20:33)
[2020-11-07] MEDS ORDERED: Nitroglycerin 0.4 MG TAB.SUBL SL PRN (14:02)
[2020-11-07] MEDS ORDERED: *HR* OxyCODONE/APAP 5/325 TABLET PO PRN (14:14)
[2020-11-07] MEDS: Heparin 25,000UNIT/250ML 1/2NS 25,000 UNIT/250 ML IV.SOLN IVC SCH (16:43)
[2020-11-07] MEDS ORDERED: NON-FORMULARY MEDICATION 1 EACH EACH (Gabapentin [Neurontin] 800 MG Tablet) PO SCH (17:00)
[2020-11-07] MEDS: rOPINIRole 1 MG TABLET PO SCH (20:34)
[2020-11-07] MEDS: Magnesium Oxide 400 MG TABLET PO SCH (20:36)
[2020-11-07] MEDS: Furosemide 40 MG TABLET PO SCH (20:36)
[2020-11-07] MEDS: Benzonatate 100 MG CAPSULE PO PRN (20:48)
[2020-11-07 21:58] LABS: Adenovirus Not Detected (Not Detect); Bordetella Pertussis Not Detected (Not Detect); Chlamydophila pneumoniae Not Detected (Not Detect); Coronavirus 229E Not Detected (Not Detect); Coronavirus HKU1 Not Detected (Not Detect); Coronavirus NL63 Not Detected (Not Detect); Coronavirus OC43 Not Detected (Not Detect); Human Metapneumovirus Not Detected (Not Detect); Human Rhinovirus/Enterovirus Not Detected (Not Detect); Influenza A Subtype 2009 H1 Not Detected (Not Detect); Influenza B Not Detected (Not Detect); Mycoplasma pneumoniae Not Detected (Not Detect); Parainfluenza Virus 1 Not Detected (Not Detect); Parainfluenza Virus 2 Not Detected (Not Detect); Parainfluenza Virus 3 Not Detected (Not Detect); Parainfluenza Virus 4 Not Detected (Not Detect); Respiratory Syncytial Virus Not Detected (Not Detect); SARS-CoV-2 Not Detected (Not Detect)
[2020-11-08 01:44] LABS: Basophils % 0.4 %; Eosinophils # 0.2 K/mcL (0.0-0.6); Eosinophils % 2.1 %; Hematocrit 35.1 % (37.5-50.1); Hemoglobin 11.6 g/dL (12.9-16.9); Immature Granulocytes % 0.5 % (0-4); Lymphocytes # 1.5 K/mcL (0.6-4.6); Lymphocytes % 13.6 %; Mean Corpuscular Hemoglobin 29.2 pg (28.0-33.3); Mean Corpuscular Volume 88.4 fL (83.0-100.0); Mean Platelet Volume 10.9 fL (9.4-12.4); Monocytes # 1.3 K/mcL (0.0-1.3); Monocytes % 12.4 %; Neutrophils # 7.6 K/mcL (1.6-8.9); Platelet Count 202 K/mcL (140-400); Red Blood Count 3.97 M/mcL (4.19-5.50); Red Cell Distribution Width 13.6 % (11.5-14.5); White Blood Count 10.7 K/mcL (4.3-11.1)
[2020-11-08 02:05] LABS: BUN/Creatinine Ratio 15 (6-26); Blood Urea Nitrogen 16 mg/dL (8-23); Calcium 8.6 mg/dL (8.6-10.3); Carbon Dioxide 23 mEq/L (23-29); Chloride 104 mEq/L (98-107); Glucose 229 mg/dL (70-105); Magnesium 1.4 mg/dL (1.6-2.6); Osmolality,Calculated 288 (280-300); Potassium 4.2 mEq/L (3.5-5.1); Sodium 135 mEq/L (136-145); eGFR For African Americans > 60 (> 60); eGFR For Non-African Americans > 60 (> 60)
[2020-11-08] MEDS: Morphine Sulfate 2 MG/ML SYRINGE IVP PRN ×3 (06:00→20:43)
[2020-11-08] MEDS: Insulin LISPRO 300 UNITS/3 ML VIAL SUBQ SCH ×3 (06:03→17:32)
[2020-11-08] MEDS: Metoprolol XL (24 HR) Succ 25 MG TAB.ER.24H PO SCH (07:49)
[2020-11-08] MEDS: Aspirin Enteric Coated 81 MG Tablet PO SCH (07:49)
[2020-11-08] MEDS: Furosemide 40 MG TABLET PO SCH ×2 (07:49→17:22)
[2020-11-08] MEDS: Magnesium Oxide 400 MG TABLET PO SCH ×2 (07:49→20:42)
[2020-11-08] MEDS: Gabapentin 400 MG CAPSULE PO SCH ×4 (07:49→20:42)
[2020-11-08] MEDS: Isosorbide MONOnitrate (24 HR) 30 MG TAB.ER.24H PO SCH (07:50)
[2020-11-08] MEDS ORDERED: Ketorolac 15 MG/ML VIAL IVP PRN (11:53)
[2020-11-08] MEDS ORDERED: 0.9 % Sodium Chloride 1,000 ML ONE (13:01)
[2020-11-08] MEDS ORDERED: *HR* Metoprolol 5 MG/5 ML VIAL IVP ONE ×2 (13:01→14:23)
[2020-11-08] MEDS ORDERED: 0.9 % Sodium Chloride 500 ML IV ONE (13:03)
[2020-11-08] MEDS ORDERED: *HR* HYDROmorphone (PF) 1 MG/ML SYRINGE IVP ONE (13:04)
[2020-11-08] MEDS ORDERED: *HR* OxyCODONE/APAP 5/325 TABLET PO PRN (15:59)
[2020-11-08] MEDS ORDERED: DilTIAZem 50 MG in 0.9 % Sodium Chloride 40 ML IVC SCH (17:15)
[2020-11-08] MEDS: *HR* Metoprolol 5 MG/5 ML VIAL IVP SCH (17:25)
[2020-11-08] MEDS: rOPINIRole 1 MG TABLET PO SCH (20:41)
[2020-11-08] MEDS ORDERED: Metoprolol XL (24 HR) Succ 50 MG TAB.ER.24H PO SCH (21:00)
[2020-11-08] MEDS: Heparin 25,000UNIT/250ML 1/2NS 25,000 UNIT/250 ML IV.SOLN IVC SCH (22:48)
[2020-11-09] MEDS: *HR* Metoprolol 5 MG/5 ML VIAL IVP SCH ×4 (00:13→17:53)
[2020-11-09] MEDS: DilTIAZem 50 MG/50 ML IV.SOLN IVC SCH ×2 (00:23→17:55)
[2020-11-09] MEDS: Insulin LISPRO 300 UNITS/3 ML VIAL SUBQ SCH ×4 (00:25→17:42)
[2020-11-09 02:57] LABS: Alanine Aminotransferase 19 Units/L (7-52); Albumin 3.6 g/dL (3.5-5.7); Albumin/Globulin Ratio 1.2 (1.1-2.2); Alkaline Phosphatase 63 Units/L (34-104); Aspartate Amino Transferase 28 Units/L (13-39); BUN/Creatinine Ratio 22 (6-26); Bilirubin,Total 0.7 mg/dL (0.3-1.0); Blood Urea Nitrogen 26 mg/dL (8-23); Calcium 9.3 mg/dL (8.6-10.3); Carbon Dioxide 27 mEq/L (23-29); Chloride 97 mEq/L (98-107); Glucose 260 mg/dL (70-105); Magnesium 2.3 mg/dL (1.6-2.6); Osmolality,Calculated 294 (280-300); Phosphorous 3.2 mg/dL (2.7-4.5); Potassium 4.1 mEq/L (3.5-5.1); Sodium 135 mEq/L (136-145); Total Protein 6.6 g/dL (6.4-8.9); eGFR For African Americans > 60 (> 60); eGFR For Non-African Americans > 60 (> 60)
[2020-11-09 03:47] LABS: Basophils % 0.2 %; Monocytes % 6.9 %; Red Cell Distribution Width 13.6 % (11.5-14.5)
[2020-11-09 03:49] LABS: Basophils # 0.1 K/mcL (0.0-0.2); Hematocrit 42.2 % (37.5-50.1); Hemoglobin 13.7 g/dL (12.9-16.9); Immature Granulocytes % 1.5 % (0-4); Lymphocytes # 0.8 K/mcL (0.6-4.6); Lymphocytes % 2.2 %; Mean Corpuscular HGB Conc 32.5 g/dL (31.6-35.5); Mean Corpuscular Hemoglobin 28.1 pg (28.0-33.3); Mean Corpuscular Volume 86.5 fL (83.0-100.0); Mean Platelet Volume 11.8 fL (9.4-12.4); Monocytes # 2.4 K/mcL (0.0-1.3); Neutrophils # 31.3 K/mcL (1.6-8.9); Platelet Count 235 K/mcL (140-400); Red Blood Count 4.88 M/mcL (4.19-5.50); Segmented Neutrophils % 89.2 %
[2020-11-09 03:56] LABS: White Blood Count 35.1 K/mcL (4.3-11.1)
[2020-11-09] MEDS: Morphine Sulfate 2 MG/ML SYRINGE IVP PRN (05:18)
[2020-11-09 05:31] LABS: Platelet Estimate Normal (Normal); Smudge Cells Present (Not Present)
[2020-11-09 06:52] LABS: Bilirubin,Urine Negative (Negative); Blood,Urine Negative (Negative); Clarity,Urine Clear (Clear); Color,Urine Yellow (Yellow); Glucose,Urine (UA) >=1000 mg/dL (Normal); Hyaline Casts,Urine Few per lpf (None Seen); Ketones,Urine Negative (Negative); Leukocyte Esterase,Urine Negative (Negative); Mucus,Urine Few per lpf (None-Few); Nitrite,Urine Negative (Negative); PH,Urine 5.5 pH Units (5.0-8.0); Protein,Urine 30 mg/dL (Neg-Trace); RBC,Urine 0-3 per hpf (0-3); Specific Gravity,Urine 1.018 (1.010-1.025); Squamous Epithelial Cell,Urine Few per hpf (None-Few); Urobilinogen,Urine Normal (Normal)
[2020-11-09] MEDS ORDERED: 0.9 % Sodium Chloride 500 ML IVC ONE (08:07)
[2020-11-09] MEDS ORDERED: Amiodarone Premix 150 MG/100 ML BAG IVPB ONE (08:35)
[2020-11-09] MEDS ORDERED: Amiodarone Premix 360 MG/200 ML BAG IVC ONE (08:35)
[2020-11-09] MEDS: Gabapentin 400 MG CAPSULE PO SCH (08:55)
[2020-11-09] MEDS: Isosorbide MONOnitrate (24 HR) 30 MG TAB.ER.24H PO SCH (08:55)
[2020-11-09] MEDS ORDERED: *HR* Vasopressin 20 UNIT/ML VIAL ONE ×2 (09:08→11:26)
[2020-11-09] MEDS ORDERED: *HR* Norepinephrine 4 MG/4 ML VIAL IVC ONE (09:08)
[2020-11-09] MEDS ORDERED: Albumin Human 5% 12.5 GM/250 ML IV.SOLN ONE (09:08)
[2020-11-09] MEDS: Magnesium Oxide 400 MG TABLET PO SCH ×2 (09:24→19:38)
[2020-11-09] MEDS: Aspirin Enteric Coated 81 MG Tablet PO SCH (09:24)
[2020-11-09] MEDS: Furosemide 40 MG TABLET PO SCH (09:25)
[2020-11-09] MEDS ORDERED: Lidocaine -MPF 1% 5 ML AMPUL ONE (09:27)
[2020-11-09] MEDS ORDERED: D5% in Water 250 ML ONE (09:28)
[2020-11-09] MEDS ORDERED: *HR* Phenylephrine 10 MG/ML VIAL ONE (09:35)
[2020-11-09] MEDS ORDERED: *HR* Rocuronium Bromide 50 MG/5 ML VIAL ONE ×2 (09:35→11:46)
[2020-11-09] MEDS ORDERED: Heparin 1,000 UNITS/500 mL 500 ML ONE (09:35)
[2020-11-09] MEDS ORDERED: CefOXitin 1,000 MG VIAL ONE (09:45)
[2020-11-09] MEDS ORDERED: *HR* Midazolam HCl 5 MG/5 ML VIAL IVP ONE (10:07)
[2020-11-09] MEDS: Piperacillin/Tazobactam 3.375 GM in 0.9 % Sodium Chloride Mini Bag 100 ML IVPB SCH ×2 (10:20→17:53)
[2020-11-09 10:22] LABS: ABG Base Excess 5 mEq/L (-2 to 3); ABG Chloride 99 mEq/L (98-107); ABG Glucose 261 mg/dL (60-95); ABG HCO3 27 mEq/L (21-27); ABG Oxygen Saturation 89 % (95-98); ABG PCO2 33 mmHg (35-45); ABG PH 7.53 pH Units (7.32-7.45); ABG PO2 49 mmHg (85-104); ABG TCO2 28 mEq/L (20-26)
[2020-11-09] MEDS ORDERED: *HR* FentaNYL (PF) 100 MCG/2 ML VIAL ONE (11:17)
[2020-11-09 11:41] LABS: ABG Base Excess 5 mEq/L (-2 to 3); ABG Chloride 96 mEq/L (98-107); ABG Glucose 286 mg/dL (60-95); ABG HCO3 29 mEq/L (21-27); ABG Ionized Calcium 1.08 mmol/L (1.15-1.35); ABG Oxygen Saturation 97 % (95-98); ABG PCO2 41 mmHg (35-45); ABG PH 7.46 pH Units (7.32-7.45); ABG PO2 88 mmHg (85-104); ABG TCO2 31 mEq/L (20-26)
[2020-11-09] MEDS ORDERED: *HR* Midazolam HCl 2 MG/2 ML VIAL ONE (11:55)
[2020-11-09] MEDS ORDERED: Artificial Tears SOLN 15 ML BOTTLE BOTH EYES PRN (12:17)
[2020-11-09] MEDS: Norepinephrine 4 MG/254 ML IV.SOLN IVC SCH ×2 (13:15→16:22)
[2020-11-09] MEDS: FentaNYL (PF) 1,000 MCG/100 ML IV.SOLN IVC SCH (13:20)
[2020-11-09] MEDS: Midazolam HCl 50 MG/100 ML IV.SOLN IVC SCH (13:20)
[2020-11-09] MEDS: Pantoprazole 40 MG VIAL IVP SCH (13:37)
[2020-11-09] MEDS: Vasopressin 40 UNIT in D5% in Water 100 ML IVC SCH (13:38)
[2020-11-09 14:23] LABS: ABG Base Excess 8 mEq/L (-2 to 3); ABG HCO3 33 mEq/L (21-27); ABG Oxygen Saturation 96 % (95-98); ABG PCO2 47 mmHg (35-45); ABG PH 7.45 pH Units (7.32-7.45); ABG PO2 77 mmHg (85-104); ABG TCO2 35 mEq/L (20-26); Blood Gas VT 500 cc
[2020-11-09] MEDS: Amiodarone Premix 360 MG/200 ML BAG IVC SCH (16:22)
[2020-11-09] MEDS: Artificial Tears SOLN 15 ML BOTTLE BOTH EYES SCH ×2 (17:41→19:37)
[2020-11-09] MEDS: Heparin 25,000UNIT/250ML 1/2NS 25,000 UNIT/250 ML IV.SOLN IVC SCH (17:57)
[2020-11-09] MEDS ORDERED: 0.9 % Sodium Chloride 1,000 ML ONE ×2 (18:37→23:27)
[2020-11-09] MEDS: Norepinephrine 8 MG in 0.9 % Sodium Chloride 250 ML IVC SCH ×2 (19:05→23:32)
[2020-11-09] MEDS: Chlorhexidine Rinse 15 ML MOUTHWASH MM SCH (19:37)
[2020-11-09 23:35] LABS: Hematocrit 33.9 % (37.5-50.1); Mean Corpuscular HGB Conc 32.4 g/dL (31.6-35.5); Mean Corpuscular Hemoglobin 28.2 pg (28.0-33.3); Mean Corpuscular Volume 86.9 fL (83.0-100.0); Platelet Count 223 K/mcL (140-400); Red Cell Distribution Width 13.8 % (11.5-14.5); White Blood Count 22.1 K/mcL (4.3-11.1)
[2020-11-09 23:52] LABS: Lymphocytes # 1.3 K/mcL (0.6-4.6); Monocytes # 0.9 K/mcL (0.0-1.3); Neutrophils # 19.9 K/mcL (1.6-8.9); Platelet Estimate Normal (Normal)
[2020-11-10] MEDS ORDERED: Albumin 25% 25gram/100mL 25 GM/100 ML IV.SOLN IVPB ONE (00:09)
[2020-11-10] MEDS: Artificial Tears SOLN 15 ML BOTTLE BOTH EYES SCH ×7 (00:30→23:52)
[2020-11-10] MEDS: Insulin LISPRO 300 UNITS/3 ML VIAL SUBQ SCH ×5 (00:30→23:52)
[2020-11-10] MEDS: *HR* Metoprolol 5 MG/5 ML VIAL IVP SCH ×5 (00:31→23:53)
[2020-11-10] MEDS: Piperacillin/Tazobactam 3.375 GM in 0.9 % Sodium Chloride Mini Bag 100 ML IVPB SCH ×4 (00:32→23:54)
[2020-11-10] MEDS: FentaNYL (PF) 1,000 MCG/100 ML IV.SOLN IVC SCH ×2 (00:58→16:41)
[2020-11-10] MEDS: Amiodarone Premix 360 MG/200 ML BAG IVC SCH ×3 (00:59→20:26)
[2020-11-10] MEDS ORDERED: *HR* Metoprolol 5 MG/5 ML VIAL IVP ONE ×2 (01:54)
[2020-11-10 03:47] LABS: Hematocrit 30.5 % (37.5-50.1); Hemoglobin 10.3 g/dL (12.9-16.9); Mean Corpuscular HGB Conc 33.8 g/dL (31.6-35.5); Mean Corpuscular Hemoglobin 29.2 pg (28.0-33.3); Mean Corpuscular Volume 86.4 fL (83.0-100.0); Mean Platelet Volume 12.1 fL (9.4-12.4); Platelet Count 217 K/mcL (140-400); Red Blood Count 3.53 M/mcL (4.19-5.50); Red Cell Distribution Width 13.8 % (11.5-14.5); White Blood Count 19.4 K/mcL (4.3-11.1)
[2020-11-10 04:06] LABS: Calcium 8.1 mg/dL (8.6-10.3); Magnesium 2.2 mg/dL (1.6-2.6); Phosphorous 4.1 mg/dL (2.7-4.5); Potassium 3.9 mEq/L (3.5-5.1)
[2020-11-10 04:12] LABS: Lymphocytes # 2.3 K/mcL (0.6-4.6); Monocytes # 2.3 K/mcL (0.0-1.3); Neutrophils # 14.7 K/mcL (1.6-8.9); Platelet Estimate Normal (Normal)
[2020-11-10] MEDS: Norepinephrine 8 MG in 0.9 % Sodium Chloride 250 ML IVC SCH ×3 (04:12→20:01)
[2020-11-10 04:13] LABS: ABG Base Excess 8 mEq/L (-2 to 3); ABG HCO3 32 mEq/L (21-27); ABG Oxygen Saturation 100 % (95-98); ABG PCO2 44 mmHg (35-45); ABG PH 7.48 pH Units (7.32-7.45); ABG PO2 160 mmHg (85-104); ABG TCO2 34 mEq/L (20-26); Blood Gas Modality ASSIST CONTROL; Blood Gas VT 500 cc
[2020-11-10 04:13] LABS: Poikilocytosis 1+ (Not Present)
[2020-11-10] MEDS: Chlorhexidine Rinse 15 ML MOUTHWASH MM SCH ×2 (08:44→20:21)
[2020-11-10] MEDS: Pantoprazole 40 MG VIAL IVP SCH (08:44)
[2020-11-10] MEDS: Magnesium Oxide 400 MG TABLET PO SCH (08:54)
[2020-11-10] MEDS: Aspirin Enteric Coated 81 MG Tablet PO SCH (08:54)
[2020-11-10] MEDS: Isosorbide MONOnitrate (24 HR) 30 MG TAB.ER.24H PO SCH (08:54)
[2020-11-10] MEDS: Albumin 25% 25gram/100mL 25 GM/100 ML IV.SOLN IVPB SCH ×2 (08:55→16:45)
[2020-11-10] MEDS: Insulin DETEMIR 100 UNIT/ML X5UNITS SUBQ SCH ×2 (09:43→22:41)
[2020-11-10] MEDS ORDERED: Insulin LISPRO 300 UNITS/3 ML VIAL SUBQ SCH (12:00)
[2020-11-10] MEDS ORDERED: D10% in Water 500 ML IVC PRN (12:43)
[2020-11-10] MEDS ORDERED: Clinimix E 5%-15% SOLUTION 2,000 ML with MVI, adult with vitamin K 10 ML IVC SCH (17:00)
[2020-11-10] MEDS: Midazolam HCl 50 MG/100 ML IV.SOLN IVC SCH (19:58)
[2020-11-10] MEDS: Vasopressin 40 UNIT in D5% in Water 100 ML IVC SCH (20:25)
[2020-11-10] MEDS: Heparin 25,000UNIT/250ML 1/2NS 25,000 UNIT/250 ML IV.SOLN IVC SCH (21:20)
[2020-11-11] MEDS: Albumin 25% 25gram/100mL 25 GM/100 ML IV.SOLN IVPB SCH ×2 (01:13→08:03)
[2020-11-11] MEDS: Heparin 25,000UNIT/250ML 1/2NS 25,000 UNIT/250 ML IV.SOLN IVC SCH ×2 (03:17→11:11)
[2020-11-11] MEDS: Artificial Tears SOLN 15 ML BOTTLE BOTH EYES SCH ×4 (04:30→15:40)
[2020-11-11] MEDS: Insulin LISPRO 300 UNITS/3 ML VIAL SUBQ SCH ×4 (04:30→15:40)
[2020-11-11] MEDS: *HR* Metoprolol 5 MG/5 ML VIAL IVP SCH ×3 (04:31→16:30)
[2020-11-11 04:41] LABS: Basophils % 0.1 %; Eosinophils % 0.1 %; Hematocrit 23.8 % (37.5-50.1); Immature Granulocytes % 0.5 % (0-4); Lymphocytes # 0.8 K/mcL (0.6-4.6); Lymphocytes % 5.6 %; Mean Corpuscular HGB Conc 32.8 g/dL (31.6-35.5); Mean Corpuscular Hemoglobin 29.3 pg (28.0-33.3); Mean Corpuscular Volume 89.5 fL (83.0-100.0); Mean Platelet Volume 12.1 fL (9.4-12.4); Monocytes # 1.2 K/mcL (0.0-1.3); Monocytes % 8.9 %; Neutrophils # 11.5 K/mcL (1.6-8.9); Platelet Count 146 K/mcL (140-400); Red Blood Count 2.66 M/mcL (4.19-5.50); Red Cell Distribution Width 13.9 % (11.5-14.5); Segmented Neutrophils % 84.8 %; White Blood Count 13.5 K/mcL (4.3-11.1)
[2020-11-11 04:46] LABS: Hemoglobin 7.8 g/dL (12.9-16.9)
[2020-11-11 05:02] LABS: Magnesium 2.5 mg/dL (1.6-2.6); Triglycerides 315 mg/dL (< 150)
[2020-11-11 05:08] LABS: ABG Base Excess 6 mEq/L (-2 to 3); ABG HCO3 31 mEq/L (21-27); ABG Oxygen Saturation 95 % (95-98); ABG PCO2 47 mmHg (35-45); ABG PH 7.43 pH Units (7.32-7.45); ABG PO2 73 mmHg (85-104); ABG TCO2 33 mEq/L (20-26); Blood Gas Modality ASSIST CONTROL; Blood Gas VT 500 cc
[2020-11-11] MEDS: FentaNYL (PF) 1,000 MCG/100 ML IV.SOLN IVC SCH ×2 (05:16→20:52)
[2020-11-11 05:18] LABS: Large Platelets Present (Not Present); Platelet Estimate Normal (Normal)
[2020-11-11] MEDS ORDERED: EPINEPHrine 1 MG/ML VIAL ONE (07:24)
[2020-11-11] MEDS ORDERED: *HR* Rocuronium Bromide 50 MG/5 ML VIAL ONE (07:24)
[2020-11-11] MEDS ORDERED: *HR* Norepinephrine 4 MG/4 ML VIAL IVC ONE (07:30)
[2020-11-11] MEDS ORDERED: *HR* Vasopressin 20 UNIT/ML VIAL ONE (07:30)
[2020-11-11 07:32] LABS: Alanine Aminotransferase 7 Units/L (7-52); Albumin 3.7 g/dL (3.5-5.7); Albumin/Globulin Ratio 1.9 (1.1-2.2); Alkaline Phosphatase 29 Units/L (34-104); Aspartate Amino Transferase 10 Units/L (13-39); BUN/Creatinine Ratio 31 (6-26); Bilirubin,Total 0.8 mg/dL (0.3-1.0); Blood Urea Nitrogen 36 mg/dL (8-23); Calcium 8.3 mg/dL (8.6-10.3); Carbon Dioxide 31 mEq/L (23-29); Chloride 100 mEq/L (98-107); Glucose 184 mg/dL (70-105); Osmolality,Calculated 301 (280-300); Potassium 2.9 mEq/L (3.5-5.1); Sodium 139 mEq/L (136-145); Total Protein 5.7 g/dL (6.4-8.9); eGFR For African Americans > 60 (> 60); eGFR For Non-African Americans > 60 (> 60)
[2020-11-11] MEDS: Aspirin Enteric Coated 81 MG Tablet PO SCH (07:40)
[2020-11-11] MEDS ORDERED: *HR* Remifentanil 1 MG VIAL IVP ONE (07:40)
[2020-11-11] MEDS: Piperacillin/Tazobactam 3.375 GM in 0.9 % Sodium Chloride Mini Bag 100 ML IVPB SCH (08:02)
[2020-11-11] MEDS: Chlorhexidine Rinse 15 ML MOUTHWASH MM SCH (08:02)
[2020-11-11] MEDS: Pantoprazole 40 MG VIAL IVP SCH (08:02)
[2020-11-11] MEDS ORDERED: Albumin Human 5% 12.5 GM/250 ML IV.SOLN ONE (08:15)
[2020-11-11] MEDS: Insulin DETEMIR 100 UNIT/ML X5UNITS SUBQ SCH (08:26)
[2020-11-11] MEDS: Amiodarone Premix 360 MG/200 ML BAG IVC SCH (08:26)
[2020-11-11] MEDS ORDERED: Potassium Phosphate 44 MEQ in 0.9 % Sodium Chloride 250 ML IVPB ONE (08:28)
[2020-11-11] MEDS: Vasopressin 40 UNIT in D5% in Water 100 ML IVC SCH (08:51)
[2020-11-11] MEDS ORDERED: Aspirin 81 MG TAB.CHEW GTUBE SCH (09:00)
[2020-11-11] MEDS ORDERED: *HR* Midazolam HCl 2 MG/2 ML VIAL ONE (09:08)
[2020-11-11] MEDS ORDERED: Norepinephrine 8 MG in 0.9 % Sodium Chloride 250 ML IVC SCH (10:28)
[2020-11-11] MEDS ORDERED: Clinimix E 5%-15% SOLUTION 2,000 ML with MVI, adult with vitamin K 10 ML IVC SCH (10:28)
[2020-11-11] MEDS ORDERED: Naloxone 0.4 MG/ML INJ IVP PRN (10:28)
[2020-11-11] MEDS ORDERED: Vasopressin 40 UNIT in D5% in Water 100 ML IVC SCH (10:28)
[2020-11-11] MEDS ORDERED: Dextrose Gel 15 GM/37.5 ML TUBE PO PRN ×4 (10:28→11:46)
[2020-11-11] MEDS ORDERED: Artificial Tears SOLN 15 ML BOTTLE BOTH EYES PRN (10:28)
[2020-11-11] MEDS ORDERED: D5% in Water 1,000 ML IVC PRN ×2 (10:28→11:46)
[2020-11-11] MEDS ORDERED: Nitroglycerin 0.4 MG TAB.SUBL SL PRN (10:28)
[2020-11-11] MEDS ORDERED: Acetaminophen 325 MG TABLET PO PRN (10:28)
[2020-11-11] MEDS ORDERED: *HR* Dextrose 50 % in Water (Vial) 50 ML VIAL IVP PRN (10:28)
[2020-11-11] MEDS ORDERED: Morphine Sulfate 2 MG/ML SYRINGE IVP PRN (10:28)
[2020-11-11] MEDS ORDERED: Ondansetron 4 MG/2 ML VIAL IVP PRN (10:28)
[2020-11-11] MEDS ORDERED: D10% in Water 500 ML IVC PRN (10:28)
[2020-11-11] MEDS ORDERED: *HR* Heparin 5,000 UNIT/ML VIAL IVP PRN ×2 (10:28)
[2020-11-11] MEDS ORDERED: Insulin LISPRO 300 UNITS/3 ML VIAL SUBQ SCH (12:00)
[2020-11-11] MEDS: Midazolam HCl 50 MG/100 ML IV.SOLN IVC SCH (15:22)
[2020-11-11] MEDS ORDERED: Piperacillin/Tazobactam 3.375 GM in 0.9 % Sodium Chloride Mini Bag 100 ML IVPB SCH (16:00)
[2020-11-11] MEDS ORDERED: Albumin 25% 25gram/100mL 25 GM/100 ML IV.SOLN IVPB SCH (17:00)
[2020-11-11] MEDS ORDERED: Insulin DETEMIR 100 UNIT/ML X5UNITS SUBQ SCH (21:00)
[2020-11-11] MEDS ORDERED: Chlorhexidine Rinse 15 ML MOUTHWASH MM SCH (21:00)
[2020-11-12] MEDS: Midazolam HCl 50 MG/100 ML IV.SOLN IVC SCH (04:09)
[2020-11-12] MEDS: Heparin 25,000UNIT/250ML 1/2NS 25,000 UNIT/250 ML IV.SOLN IVC SCH ×2 (05:15→15:19)
[2020-11-12] MEDS: Amiodarone Premix 360 MG/200 ML BAG IVC SCH ×2 (05:15→15:19)
[2020-11-12] MEDS: Insulin LISPRO 300 UNITS/3 ML VIAL SUBQ SCH ×3 (05:16→09:04)
[2020-11-12] MEDS: Artificial Tears SOLN 15 ML BOTTLE BOTH EYES SCH ×6 (05:16→20:26)
[2020-11-12] MEDS: *HR* Metoprolol 5 MG/5 ML VIAL IVP SCH ×2 (05:17→05:19)
[2020-11-12] MEDS ORDERED: Pantoprazole 40 MG VIAL IVP SCH (09:00)
[2020-11-12] MEDS ORDERED: Aspirin 81 MG TAB.CHEW GTUBE SCH (09:00)
[2020-11-12] MEDS ORDERED: Haloperidol Lactate 5 MG/ML VIAL IVP PRN (11:46)
[2020-11-12] MEDS ORDERED: *HR* LORazepam 2 MG/ML VIAL IVP PRN (11:46)
[2020-11-12] MEDS ORDERED: Atropine 1% Opth Drops 100 DROP/5 ML BOTTLE SL PRN ×2 (11:46→14:02)
[2020-11-12] MEDS: FentaNYL (PF) 1,000 MCG/100 ML IV.SOLN IVC SCH ×2 (13:33→20:27)
[2020-11-13] MEDS: Artificial Tears SOLN 15 ML BOTTLE BOTH EYES SCH ×7 (00:12→21:00)
[2020-11-13] MEDS ORDERED: Morphine Sulfate 2 MG/ML SYRINGE IVP PRN ×2 (00:45→10:24)
[2020-11-13] MEDS ORDERED: Haloperidol Lactate 5 MG/ML VIAL IVP PRN (00:45)
[2020-11-13] MEDS ORDERED: Ondansetron 4 MG/2 ML VIAL IVP PRN (00:45)
[2020-11-13] MEDS: FentaNYL (PF) 1,000 MCG/100 ML IV.SOLN IVC SCH ×3 (00:51→16:56)
[2020-11-13] MEDS: Scopolamine Patch 1.5 MG PATCH.TD72 TD SCH (10:45)
[2020-11-13] MEDS: *HR* LORazepam 2 MG/ML VIAL IVP PRN (10:46)
[2020-11-13] MEDS: Morphine Sulfate 2 MG/ML SYRINGE IVP PRN (10:46)
[2020-11-13] MEDS: Atropine 1% Opth Drops 100 DROP/5 ML BOTTLE SL PRN (20:59)
[2020-11-14] MEDS: Artificial Tears SOLN 15 ML BOTTLE BOTH EYES SCH ×2 (00:31→04:46)
[2020-11-14] MEDS: Atropine 1% Opth Drops 100 DROP/5 ML BOTTLE SL PRN ×2 (01:00→05:31)
[2020-11-14] MEDS: *HR* LORazepam 2 MG/ML VIAL IVP PRN (01:47)
[2020-11-14] MEDS: Morphine Sulfate 2 MG/ML SYRINGE IVP PRN ×4 (01:48→22:21)
[2020-11-14] MEDS: FentaNYL (PF) 1,000 MCG/100 ML IV.SOLN IVC SCH ×3 (01:51→20:31)
[2020-11-14] MEDS ORDERED: *HR* LORazepam 2 MG/ML VIAL IVP PRN (11:00)
[2020-11-14] MEDS: *HR* LORazepam 2 MG/ML VIAL IVP SCH ×3 (17:26→20:19)
[2020-11-15] MEDS: *HR* LORazepam 2 MG/ML VIAL IVP SCH ×6 (00:03→20:26)
[2020-11-15] MEDS ORDERED: Acetaminophen IV 1,000 MG/100 ML BAG IVPB ONE (00:17)
[2020-11-15] MEDS: FentaNYL (PF) 1,000 MCG/100 ML IV.SOLN IVC SCH ×3 (03:57→23:55)
[2020-11-15] MEDS ORDERED: Acetaminophen 650 MG RECTAL SUPP RC PRN (10:24)
[2020-11-15] MEDS: Morphine Sulfate 2 MG/ML SYRINGE IVP PRN ×3 (12:11→20:26)
[2020-11-15] MEDS ORDERED: Acetaminophen IV 1,000 MG/100 ML BAG IVPB SCH (12:15)
[2020-11-15] MEDS: Acetaminophen IV 1,000 MG/100 ML BAG IVPB PRN (13:42)
[2020-11-16] MEDS: *HR* LORazepam 2 MG/ML VIAL IVP SCH ×6 (00:25→19:43)
[2020-11-16] MEDS: Acetaminophen IV 1,000 MG/100 ML BAG IVPB PRN ×2 (00:43→11:19)
[2020-11-16] MEDS: Morphine Sulfate 2 MG/ML SYRINGE IVP PRN ×3 (04:03→13:41)
[2020-11-16] MEDS: Artificial Tears SOLN 15 ML BOTTLE BOTH EYES PRN ×3 (08:36→19:44)
[2020-11-16] MEDS: Scopolamine Patch 1.5 MG PATCH.TD72 TD SCH (08:36)
[2020-11-16] MEDS: FentaNYL (PF) 1,000 MCG/100 ML IV.SOLN IVC SCH ×2 (10:10→16:53)
[2020-11-16] MEDS ORDERED: Acetaminophen IV 1,000 MG/100 ML BAG IVPB PRN (17:43)
[2020-11-16 19:12] VITALS: BP 84/52
== END 2020-11-16 19:58 | disposition expired | DRG 264 ==
LOC: 2NENU → SUATTDRO 04:43 → ICNU 11-09 12:01 → 2ANU 11-12 13:33
PROVIDERS: ADMIT Family Medicine; ATTEND Internal Medicine